=== PATIENT | female | born 1980 | race Caucasian/White ===

== ENCOUNTER 2018-09-22 06:38 | Inpatient (IN) ==
--- NOTE | 2018-09-22 08:05 | ED ---
History of Present Illness Primary Care Physician: NOT REQUIRED Chief Complaint: leaking of fluid History of Present Illness: 38-year-old , IUP at 37.0 care complicated by advanced maternal age The patient presents reporting leaking of fluid that started at 1:30 AM. She reports that she had a trickle of clear fluid at 1:30 AM and felt that the fetus dropped at that time. She reports that she went to bed and woke up at 5 AM. When she got up she had a large gush of clear fluid and has continued to leak since that time. She reports that she passed her mucous plug at 5 AM. She denies any vaginal bleeding. She denies any painful cramping or contractions. She reports good movement. RECEIVING WORKER: , SAB x1, history of abnormal Pap with LEEP, denies other STDs PMH: Denies FH: HTN, DM, acid reflux PSH: Varicose vein surgery 2009, LEEP for surgical dysplasia SH: Denies Meds/allergies: As per EMR Weeks Gestation:: 37 Para: 0 : 2 Total # of Miscarriage(s): 1 Total # of Abortions (Spontaneous & Elective): 1 - Inpatient Certification I certify that the inpatient services were ordered in accordance with Medicare regulations governing the order. This includes certification that hospital inpatient services are reasonable and necessary and in the case of services not specified as inpatient-only under 42 CFR 419.22(n), that they are appropriately provided as inpatient services in accordance to with the 2-midnight benchmark under 43 CFR 412.3(e) Review of Systems All other systems reviewed negative except as stated in HPI [facility] - History History Provided By: Patient - Tobacco History Second Hand Smoke Exposure: No Smoking Status: Former smoker (Quit 01/2018) - Alcohol History How Often Do You Have a Drink Containing Alcohol: Never - Substance Use History Substance History: No History of Abuse - Travel History History of Recent Travel: No Recent Travel in the [place] Within the Last 8 Weeks: No Recent Travel Out of the Country Within the Last 8 Weeks: No Medications and Allergies Allergies Allergy/AdvReac Type Severity Reaction Status Date / Time Penicillins Allergy Rash Verified 09/22/18 07:10 sulfamethoxazole Allergy Rash Verified 09/22/18 07:10 [From Bactrim] trimethoprim [From Bactrim] Allergy Rash Verified 09/22/18 07:10 Home Medications Medication Instructions Recorded Confirmed Type Synthroid 50 mcg QAM 08/14/18 09/22/18 History PNV cmb#95-ferrous fumarate-FA 1 tab PO DAILY 09/22/18 09/22/18 History [] ranitidine HCl [Zantac] 150 mg PO DAILY 09/22/18 09/22/18 History Exam Vital signs: Vital Signs 09/22/18 06:57 Temperature 97.9 F Pulse Rate 91 H Respiratory Rate 18 Blood Pressure 105/71 Intake & Output 09/21/18 09/22/18 09/22/18 18:59 06:59 18:59 Weight 85 kg Narrative: GENERAL: Well-nourished, well-developed patient. NAD. SKIN: Warm and dry. No rashes, masses, lesions noted. HEAD: Normocephalic and atraumatic. EYES: No scleral icterus. No injection or drainage. ENT: No nasal drainage noted. Mucous membranes pink. Airway patent. NECK: Supple, trachea midline. No JVD. CARDIOVASCULAR: Regular rate and rhythm without murmurs, gallops, or rubs. RESPIRATORY: Breath sounds equal bilaterally. No accessory muscle use. BREASTS: Deferred ABDOMEN/GI: Abdomen soft, non-tender, bowel sounds present, no rebound, no guarding, Gravid. GENITOURINARY: Normal EGBUS, no cervical or vaginal masses noted, physiologic discharge, grossly normal rugae, grossly ruptured, positive amnio sure, SVE 2/80 /-3, posterior FHT's: NST indicated for leaking of fluid and AMA at term. Moderate retirement variability with heart rate baseline in the 130s, good accelerations and no decelerations noted. This is a category 1 heart rate tracing and reactive NST. position confirmed by ultrasound to be vertex. EXTREMITIES: No cyanosis or edema. BACK: Nontender without obvious deformity. No CVA tenderness. NEUROLOGICAL/Musculoskeletal/Psychiatric: Awake and alert. Grossly normal memory /affect. Grossly normal range of motion. Grossly normal gait. Motor and sensory grossly within normal limits. Five out of 5 muscle strength in all muscle groups. Normal speech. Cranial Nerves II-XII are grossly intact. Assessment and Plan - Plan Assessment/plan: 1. IUP at 37.0 2. PROM: We will admit patient to Dr. Hernandez for ruptured membranes at term. The patient is rafy but does not feel these contractions. Discuss the goals of an , and indications for delivery. All the patient's questions were answered and she will be admitted. Discussed with Dr. Hernandez, will start oxytocin and will defer further management. 3. well-being: Reassuring testing with reactive NST and category 1 heart rate tracing, will continue monitoring 4. GBS: Patient reports her GBS was drawn 2 days ago, will request results 5. We will request records from the clinic Discharge Plan - Physicians Team ED Provider: Ara Keen Primary Care Provider: NOT REQUIRED,
[2018-09-22] MEDS ORDERED: Oxytocin 30 Units/500ml Premix 30 UNITS/500 ML BAG IV.SIG ONE ×2 (08:50→19:25)
[2018-09-22] MEDS ORDERED: Sod Chloride 0.9% Inj 1,000 ML IV.CONT PRN (08:50)
[2018-09-22] MEDS ORDERED: fentaNYL Citrate Inj 100 MCG/2 ML Ampul IV.PUSH PRN ×2 (08:50)
[2018-09-22] MEDS ORDERED: Sodium Chlor 0.9% Inj 500 ML IV.SIG PRN (08:50)
[2018-09-22] MEDS ORDERED: Naloxone Inj 0.4 MG/ML Vial IV.PUSH PRN ×2 (08:50→19:25)
[2018-09-22] MEDS ORDERED: Oxytocin 30 Units/500ml Premix 30 UNITS/500 ML BAG IV.SIG PRN (08:51)
[2018-09-22] MEDS ORDERED: Citric Acid/Sodium Citrate Liq 30 ML UDC PO SCH (09:00)
[2018-09-22 09:11] LABS: Bilirubin,Urine Negative (Negative); Clarity,Urine Hazy (Clear); Color,Urine Yellow (Yellw/Straw); Glucose,Urine (UA) Negative (Negative); Leukocyte Esterase,Urine Trace (Negative); Mucus,Urine Few /lpf (Occasional); Nitrite,Urine Negative (Negative); Specific Gravity,Urine 1.015 (1.002-1.035); Squamous Epithelial Cell,Urine 3 /hpf (0-5)
[2018-09-22 09:44] LABS: Baso % (Auto) 0.1 % (0.0-2.0); Eos % (Auto) 0.3 % (0.0-4.0); Hematocrit 28.3 % (35.0-46.0); Hemoglobin 9.6 gm/dL (11.6-15.3); Lymph % (Auto) 14.1 % (9.0-44.0); Mean Corpuscular HGB Conc 34.1 % (32.0-36.0); Mean Corpuscular Hemoglobin 31.5 pg (27.0-34.0); Mean Corpuscular Volume 92.5 fL (80.0-100.0); Mean Platelet Volume 10.1 fL (7.0-11.0); Mono # (Auto) 0.3 th/mm3 (0.0-0.9); Mono % (Auto) 4.2 % (0.0-8.0); Neut # (Auto) 5.6 th/mm3 (1.8-7.7); Neut % (Auto) 81.3 % (16.0-70.0); Platelet Count 128 th/mm3 (150-450); Red Blood Count 3.06 mil/mm3 (4.00-5.30); White Blood Count 6.9 th/mm3 (4.0-11.0)
[2018-09-22] MEDS: Levothyroxine 50 MCG Tablet PO SCH (11:27)
[2018-09-22] MEDS ORDERED: Vancomycin Consult Pharmacy OTHER PRN (12:38)
[2018-09-22 12:39] LABS: Glomerular Filtration Rate Greater Than 89 mL/min (>89)
[2018-09-22] MEDS: Vancomycin Inj 1,500 MG in Sodium Chlor 0.9% Inj 500 ML IV.SIG SCH ×2 (13:36→18:40)
[2018-09-22] MEDS ORDERED: fentaNYL 2MCG-Bupiv 0.125% Epi 150 ML EPIDURAL ONE (13:59)
[2018-09-22] MEDS ORDERED: Lidocaine PF 1% Inj 5 ML Vial ONE (16:21)
[2018-09-22] MEDS ORDERED: Sodium Chlor 0.9% Inj 10 ML ONE (16:21)
[2018-09-22] MEDS ORDERED: Lidocaaine 1.5%/Epinephrine 1:200,000 PF Inj 5 ML Amp ONE (16:21)
[2018-09-22] MEDS ORDERED: Lidocaine 1% Inj 50 ML Vial ONE (18:15)
--- NOTE | 2018-09-22 19:21 | P.OBDELI ---
Weeks Gestation: 37 Patient Started Active Labor: No Medical Induction of Labor: Yes Medical Induction Start Date: 09/22/18 Artificial Rupture of Membrane: Yes Artificial ROM Date: 09/22/18 Anesthesia: Epidural Episiotomy: midline Vaginal Delivery: Vacuum Presentation: Occiput anterior Nuchal Cord: x1 Delayed Cord Clamping (45 sec): No Placenta: Spontaneous delivery Laceration: Perineal, 2 deg Repair: Vicryl interrupted, Vicryl running Estimated blood loss (mL): 300 : Female Female A Weight: 2.948 kg score (1 min): 5 score (5 min): 8 Additional Information: After pushing approximately 2 hours the baby was +3 and mom was exhausted and not pushing well. We discussed the various options including vacuum extraction versus operative delivery with a I explained the risks and benefits of each and we decided to proceed with a vacuum extraction. She had a recent ultrasound which put the baby at about 6-1/2 pounds the pelvis was definitely adequate for this baby and I felt that her pushing was just inadequate. The vacuum was placed on the baby's head and with gentle pulling through 2 uterine contractions the baby was delivered without difficulty with a second-degree episiotomy there was a nuchal cord which she did not let me reduce and push the baby right out. The baby was noted to be a little floppy and with some poor tone. The cord was doubly clamped and cut and handed to the resuscitation team. After several minutes the baby coughed up a large mucous plug and the oxygenation became much better. After this the baby got to do skin to skin with mom. The baby's name was Frannie. The baby's weight was 6 pounds 8 ounces and the Apgars were 5 and 8. She did have a second-degree midline episiotomy which was repaired with 3-0 Vicryl she also had a right labial tear which was periclitoral which was repaired with a 5-0 Vicryl with excellent results. She tolerated the procedure well.
[2018-09-22] MEDS ORDERED: Oxytocin 30 Units/500ml Premix 30 UNITS/500 ML BAG IV.CONT PRN (19:25)
[2018-09-22] MEDS ORDERED: Acetaminophen 325 MG Tablet PO PRN (19:25)
[2018-09-22] MEDS ORDERED: Bisacodyl 10 MG Supp RECTAL PRN (19:25)
[2018-09-22] MEDS ORDERED: Witch Hazel 50%/Glyderin 12.5% 40 Pad Jar RECTAL PRN (19:25)
[2018-09-22] MEDS ORDERED: Zolpidem Tartrate 5 MG Tablet PO PRN (19:25)
[2018-09-22] MEDS ORDERED: Benzocaine 20% Top Spray 60 ML Can TOPICAL PRN (19:25)
[2018-09-22] MEDS ORDERED: fentaNYL Citrate Inj 100 MCG/2 ML Ampul EPIDURAL ONE (19:26)
[2018-09-22] MEDS ORDERED: fentaNYL 2MCG-Bupiv 0.125% Epi 150 ML EPIDURAL PRN (19:26)
[2018-09-22] MEDS: Senna/Docusate Sodium 8.6/50 MG Tablet PO SCH (20:34)
[2018-09-23] MEDS: Levothyroxine 50 MCG Tablet PO SCH (06:20)
[2018-09-23] MEDS ORDERED: Measles/Mumps/Rubella Vaccine Inj 0.5 ML Vial SQ ONE (09:00)
[2018-09-23] MEDS ORDERED: Diphtheria/Tetanus/Pertussis Vaccine Inj 0.5 ML Syringe IM ONE (16:00)
--- NOTE | 2018-09-23 19:11 | P.PNOB ---
Subjective Post day: 1 Interval history: Doing well Pain is well controlled Baby is in the NICU as she has some distress last nite and was GBS positive and now the baby is on antibiotics. Bleeding is normal tolerating a diet. Objective Vital Signs/I&O: Vital Signs 09/22/18 19:07 09/22/18 19:15 09/22/18 20:25 Temperature 98.0 F Pulse Rate 82 79 78 Respiratory Rate 17 18 Blood Pressure 127/67 115/76 127/67 09/23/18 08:00 Temperature 98.0 F Pulse Rate 83 Respiratory Rate 18 Blood Pressure 141/81 H Result Diagrams: 09/22/18 09:15 09/22/18 09:15 Objective Remarks: GENERAL: Well-nourished, well-developed patient. CARDIOVASCULAR: Regular rate and rhythm without murmurs, gallops, or rubs. RESPIRATORY: Breath sounds equal bilaterally. No accessory muscle use. ABDOMEN/GI: Abdomen soft, non-tender. Fundus: Firm, non-tender at umbilicus. GENITOURINARY: Light to moderate bleeding. EXTREMITIES: No cyanosis or edema, non-tender, without signs of DVT. Medications and IVs: Active Medications Acetaminophen (Tylenol) 650 mg PO Q4H PRN PRN Reason: PAIN SCALE 1 TO 2 Al Hydroxide/Mg Hydroxide (Milk Of Magnesia Liq) 30 ml PO Q12H PRN PRN Reason: Mild Constipation Benzocaine (Americaine 20% Top [place]) 1 spray TOPICAL Q4H PRN PRN Reason: For Perineum Discomfort Last Admin: 09/22/18 20:34 Dose: 1 spray Bisacodyl (Dulcolax Supp) 10 mg RECTAL DAILY PRN PRN Reason: SEVERE CONSITIPATION Ephedrine Sulfate (Ephedrine/Ns Syringe) 10 mg IV.PUSH UNSCH PRN PRN Reason: SEE LABEL COMMENTS Stop: 09/23/18 19:27 Oxytocin (Pitocin 30 Units/Ns 500 Ml Premix) 30 units in 500 mls @ 100 mls/hr IV.CONT UNSCH PRN PRN Reason: Heavy bleeding Ibuprofen (Motrin) 800 mg PO Q8H PRN PRN Reason: For Cramping Last Admin: 09/23/18 14:40 Dose: 800 mg Lactulose (Lactulose Liq) 30 ml PO DAILY PRN PRN Reason: SEVERE CONSITIPATION Levothyroxine Sodium (Synthroid) 50 mcg PO DAILY@0600 [facility] Last Admin: 09/23/18 06:20 Dose: Not Given Miscellaneous Information ([facility] Ordered Lab Info) 0 each OTHER ONCE ONE Stop: 09/24/18 02:46 Miscellaneous Information (Misc Information) 1 each OTHER UNSCH PRN PRN Reason: SEE LABEL COMMENTS Stop: 09/23/18 19:27 Miscellaneous Information (Misc Information) 1 each OTHER UNSCH PRN PRN Reason: SEE LABEL COMMENTS Stop: 09/23/18 19:27 Naloxone HCl (Narcan Inj) 0.1 mg IV.PUSH Q2M PRN PRN Reason: for opiate reversal Ondansetron HCl (Zofran Odt) 4 mg PO Q6H PRN PRN Reason: NAUSEA OR VOMITING Oxycodone/Acetaminophen (Percocet 5/325 Mg) 1 tab PO Q4H PRN PRN Reason: moderate pain Vit/Calcium/Iron/Folic Ac (Stuartnatal Plus 3) 1 tab PO DAILY [facility] Senna/Docusate Sodium (Anali-Colace) 1 tab PO BID [facility] Last Admin: 09/22/18 20:34 Dose: 1 tab Sennosides (Senokot) 17.2 mg PO Q12H PRN PRN Reason: Moderate Constipation Sodium Chloride (Ns Flush) 2 ml IV.FLUSH BID [facility] Last Admin: 09/23/18 09:53 Dose: Not Given Sodium Chloride (Ns Flush) 2 ml IV.FLUSH PRN PRN PRN Reason: FLUSH AFTER USING IV ACCESS Witch Jazmyne/Glycerin (Tucks Pads) 1 applicatio RECTAL QID PRN PRN Reason: HEMORRHOIDS Last Admin: 09/22/18 20:34 Dose: 1 applicatio Zolpidem Tartrate (Ambien) 5 mg PO HS PRN PRN Reason: SLEEP Assessment and Plan - Plan 1. PPD #1 2. Doing well 3. Baby in the unit and will consider transfer to peds if the baby needs to stay.
[2018-09-23] MEDS: Senna/Docusate Sodium 8.6/50 MG Tablet PO SCH ×2 (23:30→23:31)
[2018-09-24] MEDS: Prenatal Vit/Ca/Iron/Folic Acid Tablet PO SCH ×2 (01:25→08:35)
[2018-09-24] MEDS ORDERED: Pharmacy Ordered Lab Info OTHER ONE (02:45)
[2018-09-24] MEDS: Levothyroxine 50 MCG Tablet PO SCH (06:02)
[2018-09-24] MEDS: Senna/Docusate Sodium 8.6/50 MG Tablet PO SCH (08:35)
[2018-09-24 09:18] VITALS: BP 115/69; PULSE 97; RESP 16
[2018-09-24 14:32] VITALS: TEMP 98.4
--- NOTE | 2018-09-24 15:45 | P.PNOB ---
Subjective Post day: 2 Interval history: Doing well Pain is well controlled the bleeding is normal Baby is doing well Eating well Objective Vital Signs/I&O: Vital Signs 09/23/18 20:00 09/24/18 08:35 09/24/18 14:31 Temperature 97.9 F 98.4 F Pulse Rate 85 97 H Respiratory Rate 18 16 Blood Pressure 119/69 115/69 Result Diagrams: 09/22/18 09:15 09/22/18 09:15 Objective Remarks: GENERAL: Well-nourished, well-developed patient. CARDIOVASCULAR: Regular rate and rhythm without murmurs, gallops, or rubs. RESPIRATORY: Breath sounds equal bilaterally. No accessory muscle use. ABDOMEN/GI: Abdomen soft, non-tender. Fundus: Firm, non-tender at umbilicus. GENITOURINARY: Light to moderate bleeding. EXTREMITIES: No cyanosis or edema, non-tender, without signs of DVT. Medications and IVs: Active Medications Acetaminophen (Tylenol) 650 mg PO Q4H PRN PRN Reason: PAIN SCALE 1 TO 2 Al Hydroxide/Mg Hydroxide (Milk Of Magnesia Liq) 30 ml PO Q12H PRN PRN Reason: Mild Constipation Benzocaine (Americaine 20% Top [place]) 1 spray TOPICAL Q4H PRN PRN Reason: For Perineum Discomfort Last Admin: 09/22/18 20:34 Dose: 1 spray Bisacodyl (Dulcolax Supp) 10 mg RECTAL DAILY PRN PRN Reason: SEVERE CONSITIPATION Oxytocin (Pitocin 30 Units/Ns 500 Ml Premix) 30 units in 500 mls @ 100 mls/hr IV.CONT UNSCH PRN PRN Reason: Heavy bleeding Ibuprofen (Motrin) 800 mg PO Q8H PRN PRN Reason: For Cramping Last Admin: 09/24/18 08:35 Dose: 800 mg Lactulose (Lactulose Liq) 30 ml PO DAILY PRN PRN Reason: SEVERE CONSITIPATION Levothyroxine Sodium (Synthroid) 50 mcg PO DAILY@0600 [facility] Last Admin: 09/24/18 06:02 Dose: 50 mcg Naloxone HCl (Narcan Inj) 0.1 mg IV.PUSH Q2M PRN PRN Reason: for opiate reversal Ondansetron HCl (Zofran Odt) 4 mg PO Q6H PRN PRN Reason: NAUSEA OR VOMITING Oxycodone/Acetaminophen (Percocet 5/325 Mg) 1 tab PO Q4H PRN PRN Reason: moderate pain Vit/Calcium/Iron/Folic Ac (Stuartnatal Plus 3) 1 tab PO DAILY COUNTS INCLUDE 234 BEDS AT THE [facility] Last Admin: 09/24/18 08:35 Dose: 1 tab Senna/Docusate Sodium (Anali-Colace) 1 tab PO BID COUNTS INCLUDE 234 BEDS AT THE [facility] Last Admin: 09/24/18 08:35 Dose: 1 tab Sennosides (Senokot) 17.2 mg PO Q12H PRN PRN Reason: Moderate Constipation Sodium Chloride (Ns Flush) 2 ml IV.FLUSH BID COUNTS INCLUDE 234 BEDS AT THE [facility] Last Admin: 09/24/18 09:32 Dose: Not Given Sodium Chloride (Ns Flush) 2 ml IV.FLUSH PRN PRN PRN Reason: FLUSH AFTER USING IV ACCESS Witch Jazmyne/Glycerin (Tucks Pads) 1 applicatio RECTAL QID PRN PRN Reason: HEMORRHOIDS Last Admin: 09/22/18 20:34 Dose: 1 applicatio Zolpidem Tartrate (Ambien) 5 mg PO HS PRN PRN Reason: SLEEP Assessment and Plan - Plan 1. PPD #2 2. Doing well 3. Baby in the unit and will consider transfer to peds if the baby needs to stay. We will find out tonight if the baby can go to appease her needs to stay in the NICU
== END 2018-09-24 14:42 | disposition home or self-care (01) | DRG 807 ==
LOC: HOBED 06:38 → H2E 07:30 → H1EA 20:09
PROVIDERS: ADMIT Obstetrics & Gynecology; ATTEND Obstetrics & Gynecology
CPT/HCPCS: 59025; 81001; 82565; 83518; 84112; 85025; 86900; 86901; 87086; 87150; 90715; 99285; J2590; J3010; J3370; J7040; J7120